=== PATIENT | male | born 1965 | race Caucasian/White ===

== ENCOUNTER 2016-11-24 08:39 | Emergency (ER) ==
[2016-11-24 08:50] VITALS: BP 158/103
--- NOTE | 2016-11-24 09:19 | PROVIDER DOCUMENTATION ---
HPI-Musculoskeletal Pain/Inj - GENERAL Chief Complaint: Hip Pain Stated Complaint: fall/hip pain Time Seen by Provider: 11/24/16 09:12 Source: patient - HX OF PRESENT ILLNESS-MUSKULOSKELTAL Nature of Presenting Problem: 51 y/o Wm c/o left hip pain x 6-7 months, with a fall last night that increased the pain. He is on chronic pain management at a [facility]. States he is able to ambulate but the pain is worse now. Denies change of pain from prior, except for increase in activity. Denies hitting head or loc. Currently takes oxycodone, hydrocodone and a muscle relaxers for the pain Quality of Pain: reports: aching Severity in ED: moderate Onset/Duration: other (6-7 months) Timing: still present, constant Review of Systems - Adult - REVIEW OF SYSTEMS - ADULT Constitutional: reports: no symptoms reported. denies: chills, fever, fatique Eyes: reports: no symptoms reported. denies: blurred vision, double vision, eye pain Ears, Nose, Mouth & Throat: reports: no symptoms reported. denies: ear pain, nose pain, throat pain Cardiovascular: reports: no symptoms reported. denies: chest pain, palpitations Respiratory: reports: no symptoms reported. denies: cough, shortness of breath , wheezing Gastrointestinal: reports: no symptoms reported. denies: abdominal pain, diarrhea, nausea, vomiting Genitourinary: reports: no symptoms reported. denies: dysuria, discharge, frequency, incontinence Musculoskeletal: reports: see HPI, bone pain, frequent leg cramps, joint pain, muscle aches. denies: back pain Integumentary: reports: no symptoms reported. denies: rash Neurological: reports: no symptoms reported. denies: headache/migraines Psychiatric: reports: no symptoms reported Endocrine: reports: no symptoms reported Hematologic/Lymphatic: reports: no symptoms reported Allergic/Immunologic: reports: no symptoms reported All Other Systems: Reviewed and Negative Past History - Adult - PAST MEDICAL HISTORY-ADULT Review of Records: reports: Old Records Reviewed, Nursing Assessment Review, Medications Reviewed, Social history reviewed & non-contributory. Major Childhood Illnesses: reports: denies history Cardiovascular: reports: denies history Respiratory: reports: COPD, other Gastrointestinal: reports: denies history Genitourinary: reports: denies history Musculoskeletal: reports: cancer (spinal cancer), chronic pain Neurological: reports: denies history Endocrine/Immune: reports: denies history Other Conditions: reports: denies history - PRIOR SURGERIES/PROCEDURES Surgical/Procedure History: reports: other (Total hip replacement right) - IMMUNIZATION STATUS Childhood Immunizations: UTD Flu Vaccine: UTD - FAMILY HISTORY Family History: reviewed, not pertinent - SOCIAL HISTORY Smoking: greater than 1 pack/day Provider spent 3-5 mins advising pt. on dangers of tobacco.: Discussed manners to quit use, and f/u contacts for add'l counseling. Substance Use: none/never Alcohol Use Frequency: never Living Situation: family Physical Exam-Injury Related - Physical Exam-Injury Related General Appearance: appears well, alert, mild distress Eyes: PERRL/EOMI, pink conjunctivae Head, Ears, Nose, Mouth & Throat: normocephalic/atraumatic, moist mucous membranes, normal ENT inspection Neck: non-tender, full range of motion, supple, normal inspection. negative: C- spine tenderness Respiratory: chest non-tender, lungs clear, normal breath sounds, no pleuratic chest pain, no respiratory distress, no accessory muscle use. negative: respiratory distress, decreased breath sounds, accessory muscle use, crackles, rales, rhonchi, stridor, wheezing Cardiovascular: normal peripheral pulses, regular rate, rhythm, no edema, no gallop, no JVD, no murmur Peripheral Pulses: dorsalis-pedis (R): 2+, dorsalis-pedis (L): 2+ Lymphatic: no adenopathy Extremity: normal range of motion, normal inspection, no pedal edema, no calf tenderness, normal capillary refill, pelvis stable, other (left hip: patient is ambulatory, favoring the left hip. 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 II-XII nml as tested, no motor/sensory deficits Psych/Mental Status: AL, normal mood/affect, normal thought content, normal thought process, oriented x 3 - Glascow Coma Score Best Eye Response (Luis): (4) open spontaneously Best Verbal Response (Luis): (5) oriented Best Motor Response (Luis): (6) obeys commands Progress - PLAN OF CARE/RESULTS Progress/Plan/Lab Results: Vital Signs Temp Pulse Resp BP Pulse Ox 11/24/16 08:46 98.1 F 95 H 18 158/103 98 amoxicillin [Amoxicillin] Allergy (Severe, Verified 11/24/16 09:26) ANAPHYLAXIS aspirin Allergy (Mild, Verified 11/24/16 09:26) ANAPHYLAXIS diphenhydramine HCl * [From Benadryl] Allergy (Mild, Verified 11/24/16 09:26) ITCHING Penicillins Allergy (Mild, Verified 11/24/16 09:26) RASH Diazepam [Valium] 10 mg PO BID 01/24/13 Gabapentin [Neurontin] 400 mg PO TID 06/04/14 Albuterol 2.5MG/Ipratrop 0.5MG [Duoneb] 3 ml INH Q4-6H PRN PRN #25 neb 07/09/14 Atorvastatin Calcium [Lipitor] 20 mg PO DAILY 07/09/14 Lisinopril 10 mg PO DAILY 07/09/14 Prednisone 10 mg PO Q8HR #30 tablet 07/09/14 Aripiprazole [Abilify] 5 mg PO BID 11/24/16 Ferrous Sulfate [Iron] 325 mg PO DAILY 11/24/16 Oxycodone HCl/Acetaminophen [Percocet 7.5-325 mg Tablet] 1 tab PO 4XDAY Orders Category Date Time Status XRAY PELVIS W/HIP 2-3VW LT [RAD] Stat Exams 11/24/16 08:50 Taken Hydromorphone [Dilaudid] Med 11/24/16 09:42 Discontinued 0.5 mg IM NOW ONE Discussed with patient and family member the importance of seeing the orthopedic within the next week. Patient and family member agreed they would call the orthopedic today for an appointment - XRAY 1 XRAY: Left XRAY Study: Pelvis, Hip Impression: Abnormal (advanced AVN of the left femoral head) Departure - Departure Time of Disposition Order: 09:42 DIAGNOSIS: Chronic left hip pain Avascular necrosis of femoral head Qualifiers: Laterality: left Qualified Code(s): M87.052 - Idiopathic aseptic necrosis of left femur Disposition: HOME 01 Certified Medical Emergency: Emergent Condition: Stable Additional Instructions: Follow up with Dr. Martinez, orthopedics ED Follow Up Instructions: You have been treated by a care provider in the Emergency Department. These instructions are being provided to you so you can have an understanding of how to care for yourself upon discharge. Upon discharge from the Emergency Department, you are responsible for making arrangements for follow-up care by a physician of your choice. Take all prescribed medications as directed. Return to the Emergency Department immediately for any new or worsening symptoms. You may call the Physician Referral phone number at [phone] to obtain a list of Physicians who are taking new patients. Referrals: Davidson Cobb [Primary Care Provider] - Michael Martinez MD [STAFF PHYSICIAN] - Attestation - Physician/ Mid-level Attestation Patient care was provided by Mid-level provider (ELECTRONIC COILS SUPERVISOR/PA):: Yes Mid-level provider:: Bharti Mckenzie Mid-level documentation review:: The Mid-level provider documentation, treatment plan and medical decision making was reviewed by the physician who agrees with all treatment and medical decision making by the MLP.
[2016-11-24] MEDS ORDERED: DILAUDID IM ONE (09:42)
--- NOTE | 2016-11-24 10:09 | Diag Imaging Result Document ---
PROCEDURE NAME: XRAY PELVIS W/HIP 2-3VW LT - 11/24/2016 X-RAY PELVIS AND TWO VIEWS OF THE LEFT HIP: COMPARISON: 06/04/2014. FINDINGS: There is a stable right hip prosthesis. There is no fracture or dislocation. There is progressive geographic sclerosis in the epiphysis of the left femoral head. The joint space is still preserved at this point. IMPRESSION: Severely advanced avascular necrosis of the left femoral head.
== END 2016-11-24 10:24 | disposition home or self-care (01) ==
LOC: ED 08:39
DX: M87.052 Idiopathic aseptic necrosis of left femur (principal); M25.552 Pain in left hip; G89.29 Other chronic pain; M89.8X8 Other specified disorders of bone, other site; M79.1 Myalgia; J44.9 Chronic obstructive pulmonary disease, unspecified; Z85.830 Personal history of malignant neoplasm of bone; Z96.641 Presence of right artificial hip joint; Z79.899 Other long term (current) drug therapy; F17.210 Nicotine dependence, cigarettes, uncomplicated; Z71.6 Tobacco abuse counseling; Z79.52 Long term (current) use of systemic steroids
CPT/HCPCS: 96372; J1170

== ENCOUNTER 2019-12-30 20:23 | Inpatient (IN) ==
[2019-12-30] MEDS ORDERED: QUELICIN ONE (20:36)
[2019-12-30] MEDS ORDERED: AMIDATE ONE (20:36)
[2019-12-30] MEDS ORDERED: DIPRIVAN 1% 1,000 MG/100 ML BOTTLE ONE (20:49)
[2019-12-30] MEDS ORDERED: DIPRIVAN 1% ONE (20:50)
[2019-12-30] MEDS ORDERED: AMIDATE IV ONE (21:00)
[2019-12-30] MEDS ORDERED: QUELICIN IV ONE (21:00)
[2019-12-30] MEDS ORDERED: DIPRIVAN 1% IV ONE (21:01)
--- NOTE | 2019-12-30 21:04 | Diag Imaging Result Doc PS360 ---
EXAM: CHEST-PORTABLE 12/30/2019 HISTORY: tube placement TECHNIQUE: AP portable at 2052 COMMENT: There is an endotracheal tube with its tip at the thoracic inlet and an NG tube with its tip below the diaphragm in the body of the stomach. The heart size and pulmonary vascularity are within normal limits. There is no evidence of acute pulmonary disease. IMPRESSION: No evidence of acute disease. Electronically signed by Loy Vizcaino 12/30/2019 9:01 PM
[2019-12-30] MEDS: DIPRIVAN 1% 1,000 MG/100 ML BOTTLE IV SCH (21:05)
[2019-12-30 21:23] LABS: URINE SOURCE CATH
[2019-12-30 21:31] LABS: BASO# 0.04 X1000 (0.0-0.2); BASO% 0.3 % (0.0-0.8); EOS# 0.16 X1000 (0.0-0.7); EOS% 1.2 % (0.0-10.0); HEMATOCRIT 45.6 % (42.0-52.0); HEMOGLOBIN 14.8 g/dL (14.0-18.0); IMM GRAN# 0.05 X1000 (0.0-0.04); IMM GRAN% 0.4 % (0.0-0.5); LYMPH# 1.86 X1000 (1.2-3.4); LYMPH% 13.7 % (20.5-51.1); MCH 30.4 PG (27-31); MCHC 32.5 g/dL (33-37); MCV 93.6 FL (81-99); MONO# 0.45 X1000 (0.11-0.59); MONO% 3.3 % (1.7-9.3); MPV 10.4 FL (7.4-10.4); NEUT# 10.98 X1000 (1.4-6.5); NEUT% 81.1 % (42.2-75.2); PLT 268 X1000 (130-400); RBC 4.87 XMIL (4.7-6.1); RDW 12.9 % (11.5-14.5); WBC 13.54 X1000 (4.8-10.8)
[2019-12-30 21:32] LABS: BILIRUBIN URINE NEGATIVE (NEGATIVE); BLOOD URINE NEGATIVE (NEGATIVE); COLOR YELLOW; GLUCOSE URINE NEGATIVE (NEGATIVE); KETONE URINE 20 mg/dL (NEGATIVE); LEUKOCYTES URINE NEGATIVE (NEGATIVE); NITRITE URINE NEGATIVE (NEGATIVE); PROTEIN URINE TRACE mg/dL (NEGATIVE); SP GRAVITY URINE 1.031; TURBIDITY URINE CLEAR (CLEAR); UROBILINOGEN URINE 3 mg/dL (NORMAL)
[2019-12-30 21:33] LABS: UR EPITHELIAL CELLS <10 /HPF (<10); URINE BACTERIA NEGATIVE /HPF; URINE RBC <10 /HPF (<10); URINE WBC <10 /HPF (<10)
--- NOTE | 2019-12-30 21:41 | Diag Imaging Result Doc PS360 ---
EXAM: CT HEAD/C-SPINE W/O CONTRAST 12/30/2019 HISTORY: UNRESPONSIVE TECHNIQUE: This exam was performed using automated exposure control, adjustment of mA or kV according to patient size, and/or use of iterative reconstruction technique. COMMENT: There is no evidence of mass effect, bleed, or abnormal extra-axial fluid collection. There is marked mucosal thickening in both maxillary sinuses and in some of the ethmoid air cells. The calvarium is intact. There are no previous studies. Cervical spine: There is disc space narrowing and posterior osteophyte formation at C4-5 and C5-6. There is an endotracheal tube and an NG tube. There is no evidence of prevertebral soft tissue swelling. The nasopharynx is opacified. The visualized portions of the chest are unremarkable. No evidence of fracture or subluxation is present. IMPRESSION: No evidence of acute intracranial or cervical spine disease. Sinusitis. Degenerative disc disease. Electronically signed by Loy Vizcaino 12/30/2019 9:39 PM
[2019-12-30 21:48] LABS: AGAP 13; ALB/GLOB RATIO 1.1; ALBUMIN 3.8 g/dL (3.5-5.0); ALKALINE PHOSPHATASE 86 U/L (32-122); BUN 11 mg/dL (8-22); CALCIUM 8.2 mg/dL (8.8-10.2); CHLORIDE 102 mmol/L (98-107); CK TOTAL 144 U/L (24-204); COSMO 278; CREATININE 0.8 mg/dL (0.7-1.2); ESTIMATED GFR > 60; GLUCOSE 120 mg/dL (70-104); GOT 22 U/L (10-34); GPT 13 U/L (10-44); POTASSIUM 4.3 mmol/L (3.5-5.1); SODIUM 139 mmol/L (136-145); TCO2 24 mmol/L (25-35); TOTAL BILIRUBIN 0.24 mg/dL (0.20-1.00); TOTAL PROTEIN 7.3 g/dL (6.3-8.3)
[2019-12-30 21:50] LABS: UR AMPHETAMINES QUAL PRESUMPTIVE POSITIVE (NONE DETECT); UR BARBITUATES QUAL NONE DETECTED (NONE DETECT); UR BENZODIAZEPIN QUAL NONE DETECTED (NONE DETECT); UR CANNABINOIDS QUAL PRESUMPTIVE POSITIVE (NONE DETECT); UR COCAINE QUAL NONE DETECTED (NONE DETECT); UR METHADONE QUAL NONE DETECTED (NONE DETECT); UR OPIATES QUAL NONE DETECTED (NONE DETECT); UR OXYCODONE QUAL NONE DETECTED (NONE DETECT); UR PCP QUAL NONE DETECTED (NONE DETECT)
--- NOTE | 2019-12-30 22:54 | PROVIDER DOCUMENTATION ---
This chart was entered by Karen Khan Scribe, acting as scribe for Celeste Connolly MD. HPI-General Adult - General Chief Complaint: Unresponsive Stated Complaint: unresponsive Time Seen by Provider: 12/30/19 20:23 Source: EMS Unable to obtain history due to:: altered Allergies/Adverse Reactions: Patient Allergies Allergy/AdvReac Type Severity Reaction Status Date / Time amoxicillin [Amoxicillin] Allergy Severe ANAPHYLAXIS Verified 12/30/19 22:00 aspirin Allergy Mild ANAPHYLAXIS Verified 12/30/19 22:00 diphenhydramine HCl * Allergy Mild ITCHING Verified 12/30/19 22:00 [From Benadryl] Penicillins Allergy Mild RASH Verified 12/30/19 22:00 Home Medications: Home Medication List Medication Instructions Recorded Confirmed Last Taken Type Unobtainable [Home Meds 12/30/19 12/30/19 Unknown History Unobtainable] - History of Present Illness -Gen Adult Nature of Presenting Problems: pt is a 54 yr old male presenting unconscious/unresponsive via EMS from home. per EMS pt was sitting on couch talking to when he passed out and fell to the right landing on the couch. pt had decreased respirations and pulse upon EMS arrival, ventilations assisted with BVM and Romeo airway was placed. reports pt was normal throughout the day, went to breakfast then returned home with , she reports they worked outside in the yard after returning home. upon going inside after yard work reports he began pouring sweat, began shaking and became unresponsive. reports he then stopped breathing and she began bystander CPR, pt began breathing on his own again but stopped and she resumed until E<S arrived. reports no hx of seizure, no drug abuse, does have hx of uncontrolled/noncompliant HTN and COPD and is to be on home o2 but does not use it. Review of Systems - Adult - REVIEW OF SYSTEMS - ADULT ROS:: unobtainable per condition Constitutional: reports: no symptoms reported Eyes: reports: no symptoms reported Ears, Nose, Mouth & Throat: reports: no symptoms reported Cardiovascular: reports: syncope Respiratory: reports: no symptoms reported Gastrointestinal: reports: no symptoms reported Genitourinary: reports: no symptoms reported Musculoskeletal: reports: no symptoms reported Integumentary: reports: no symptoms reported Neurological: reports: syncope Psychiatric: reports: no symptoms reported Endocrine: reports: no symptoms reported Hematologic/Lymphatic: reports: no symptoms reported Allergic/Immunologic: reports: no symptoms reported All Other Systems: Reviewed and Negative Past History - Adult - PAST MEDICAL HISTORY-ADULT Review of Records: reports: Old Records Reviewed, Nursing Assessment Review, Medications Reviewed, Social history reviewed & non-contributory. Major Childhood Illnesses: reports: denies history Cardiovascular: reports: denies history Respiratory: reports: COPD Gastrointestinal: reports: denies history Obstetrical/Gynecological: reports: denies history Genitourinary: reports: denies history Musculoskeletal: reports: cancer Neurological: reports: denies history Endocrine/Immune: reports: denies history Other Conditions: reports: denies history - IMMUNIZATION STATUS Childhood Immunizations: See Nurse Assessment Flu Vaccine: See Nurse Assessment - FAMILY HISTORY Family History: reviewed, not pertinent - SOCIAL HISTORY Smoking: cigarettes Substance Use: alcohol Alcohol Use Frequency: every day Living Situation: family Physical Exam-General - PHYSICAL EXAM-ADULT Initial Vital Signs Reviewed: Yes - CONSTITUTIONAL General Appearance: obtunded - EYES Eyes: PERRL/EOMI - HEAD, EARS, NOSE, MOUTH & THROAT HENMT: normocephalic/atraumatic, moist mucous membranes, other (blood noted to cornor of right mouth) - RESPIRATORY Respiratory: lungs clear, normal breath sounds, other (ventilations performed via BVM) - CARDIOVASCULAR Cardiovascular: normal peripheral pulses, bradycardia - GASTROINTESTINAL (ABDOMEN) Abdominal Exam: soft - LYMPHATIC Lymphatic: no adenopathy - MUSCULOSKELETAL Back Exam: normal inspection - SKIN Integumentary: normal color, normal turgor, warm/dry Progress - PLAN OF CARE/RESULTS Progress/Plan/Lab Results: Vital Signs - 8 hr 12/30/19 20:34 Temperature 93.3 F L Pulse Rate 55 L Respiratory Rate 8 L Blood Pressure 137/109 O2 Sat by Pulse Oximetry 100 Laboratory Results - last 24 hr 12/30/19 20:39 POC Glucose 97 Orders Category Date Time Status Etomidate [Amidate] Med 12/30/19 20:36 Discontinued 40 mg .ROUTE .STK-MED ONE Succinylcholine [Quelicin] Med 12/30/19 20:36 Discontinued 200 mg .ROUTE .STK-MED ONE Result Diagrams: 12/30/19 20:45 12/30/19 20:45 - EKG 1 Time of EKG reading by physician:: 20:27 EKG Read and Signed by:: Celeste Connolly EKG Interpretation (*Must complete 3 of following elements*): Abnormal Rate: 74 Rhythm: NSR with SA NC Interval: prolonged ST Wave: elevated (st elevation, consider early repolarization, pericarditis or injury), depressed (junctional ST depression-probably normal) - XRAY 1 XRAY Study: Chest Impression: Normal ( EXAM: CHEST-PORTABLE 12/30/2019 HISTORY: tube placement TECHNIQUE: AP portable at 2052 COMMENT: There is an endotracheal tube with its tip at the thoracic inlet and an NG tube with its tip below the diaphragm in the body of the stomach. The heart size and pulmonary vascularity are within normal limits. There is no evidence of acute pulmonary disease. IMPRESSION: No evidence of acute disease. Electronically signed by Loy Vizcaino 12/30/2019 9:01 PM 12/30/192100 Interpreting Physician: Loy Vizcaino MD Dictated Date/Time: 12/30/192099 cc: Celeste Connolly MD;) - CT/MRI 1 CT Study: Cervical Spine, Head Impression: Normal (Signed EXAM: CT HEAD/C-SPINE W/O CONTRAST 12/30/2019 HISTORY: UNRESPONSIVE TECHNIQUE: This exam was performed using automated exposure control, adjustment of mA or kV according to patient size, and/or use of iterative reconstruction technique. COMMENT: There is no evidence of mass effect, bleed, or abnormal extra-axial fluid collection. There is marked mucosal thickening in both maxillary sinuses and in some of the ethmoid air cells. The calvarium is intact. There are no previous studies. Cervical spine: There is disc space narrowing and posterior osteophyte formation at C4-5 and C5-6. There is an endotracheal tube and an NG tube. There is no evidence of prevertebral soft tissue swelling. The nasopharynx is opacified. The visualized portions of the chest are unremarkable. No evidence of fracture or subluxation is present. IMPRESSION: No evidence of acute intracranial or cervical spine disease. Sinusitis. Degenerative disc disease. Electronically signed by Loy Vizcaino 12/30/2019 9:39 PM 12/30/192138 Interpreting Physician: Loy Vizcaino MD Dictated Date/Time: 12/30/192134 cc: Celeste Connolly MD;) - CONSULTS/PCP/HOSPITALIST Notification #1 *Consult/PCP/Hospitalist*: Dr Reeves Time Discussed: 22:45 Reason/Comments: discussed plan of care for pt admit Consult Disposition: Admit (will see in ER) Procedures - INTUBATION Time of Intubation: 20:30 Intubation Method: orotracheal Equipment: ETT Tube Size (cm): 7.5 Pretreated with 100% Oxygen?: Yes Breath Sounds after Intubation: equal ETT Primary Tube Confirmation: Direct Visualization, Chest Rise and Fall, Tube placement verified on XRAY Intubation Complications: no complications Vent Settings: See Respiratory Therapy Notes Departure - Departure Date of Disposition Decision: 12/30/19 Time of Disposition Decision: 22:54 DIAGNOSIS: Seizure, Respiratory failure Disposition: ADMITTED INPATIENT 09 Certified Medical Emergency: Emergent Condition: Critical - Critical Care Note This patient required my direct & personal management of CC.: Yes Total Time (mins): 30 Critical Care Statement: This patient required my direct personal management to treat or rule out processes, the absence of which, could potentiallly result in sudden, clinically significant life or limb threatening deterioration. Attestation - Physician/ KEYANA Attestation Patient care was provided by Advanced Practice Provider:: No The physician spent face to face time with patient:: Yes Advanced Practice Provider documentation review:: Supervising physician onsite and consulted in the evaluation and care of this patient. The physician did have a face to face encounter with the patient. This chart was documented by the indicated scribe, (Karen Khan Scribe) and accurately reflects the services I performed and decisions made by me, Celeste Connolly MD, as attested by the provider's signature.
[2019-12-30] MEDS ORDERED: M.V.I.-12 10 ML, FOLIC ACID 1 MG, MAGNESIUM SULFATE 1 GM, THIAMINE 100 MG in NS 1,000 ML IV ONE (23:29)
[2019-12-30] MEDS ORDERED: MORPHINE IV ONE (23:29)
[2019-12-30 23:51] LABS: ALLEN TEST YES; BE 1.4 mmoll (-3.0-3.0); BLOOD TYPE ARTERIAL; METHB 1.2 % (0.0-1.5); O2(CT) 21.3 mL/dL (15.0-23.0); O2HB 96.9 % (95.0-99.0); PCO2(98.6) 43 mmHg (35-45); PO2(98.6) 559 mmHg (60-100); SAMPLE BLOOD; SAO2 99.4 % (95.0-100.0); SRATE 15 BPM; THB 14.5 g/dL (11.5-17.4); TVOL 500 mL
[2019-12-30 23:52] LABS: MODALITY VENTILATOR
--- NOTE | 2019-12-31 01:20 | HISTORY AND PHYSICAL ---
PRIMARY CARE PROVIDER: None. REASON FOR ADMISSION: New onset seizure. HISTORY OF PRESENT ILLNESS: Mr. Joseph Esquivel is a 52-year-old man with past medical history of hypertension, COPD on home O2. Apparently, he is not compliant per his who is not at bedside, but relayed this information to the nurse and EMS. Today, he and his did some I believe yard work and the patient did not use any home O2 while doing this. After several hours of working out in the yard, they came into the house. The patient sat down and according to the , the patient became profoundly diaphoretic, stuporous, and went into a tonic-clonic type seizure. The estimates about 30 seconds this went on and he stopped. She tried to arouse him without any success and called EMS who subsequently brought him in. Since he has been here, he has underwent endotracheal intubation because he started posturing more of a decerebrate type posture. Currently, he is on the ventilator, unable to give any information. is not at bedside. The patient as I stated earlier unable to give me any information. He is currently sedated and hardly moving at all in bed. REVIEW OF SYSTEMS: Could not be obtained for obvious reasons. SURGICAL HISTORY: Could not be obtained. FAMILY HISTORY: Could not be obtained. SOCIAL HISTORY: He is . Drinks about 12 beers a day. Only drank 4 today. His last drink was at 4 p.m., according to the . Sometimes in addition to 12 beers drinks some unquantified amount of whiskey. Drug use could not be obtained, but he does smoke a pack a day. LABORATORY WORK: White count is 13,000, hemoglobin and hematocrit 14 and 45, platelets 268,000, 81% neutrophils. BUN is 11, creatinine 0.8, glucose 120. CK is normal. UDS positive for amphetamines and cannabinoids. Urinalysis, trace protein, trace ketones. CT of the head and C- spine, no evidence of intracranial or cervical abnormalities. Chest film, no evidence of acute disease. EKG not done yet. ALLERGIES: Patient allergic to penicillins, Benadryl and aspirin. PHYSICAL EXAMINATION: GENERAL: He is a middle-aged white male unresponsive on the ventilator. VITAL SIGNS: Blood pressure when I saw him was 180/111, heart rate is 100, respiratory rate is 22, temperature is 93.3 degrees. It is currently up to 95 after use of the Arnoldo Hugger. HEENT: His head is normocephalic, atraumatic. Eyes are slightly miotic but slowly reactive to light. No nystagmus or abnormal eye movement noted. Negative dolls eye movement. No facial asymmetry appreciated. ET tube is in place. No cyanosis noted. NECK: Supple. No JVD appreciated. CHEST: Decreased air entry in the bases, but no wheezes. CARDIOVASCULAR: First and second heart sounds heard. No gallops, rubs. Rhythm is regular. ABDOMEN: Full, soft, nontender. No organomegaly. Bowel sounds are slightly hypoactive. RECTAL: Exam deferred at this time. EXTREMITIES: There is good distal pulse volumes, regular, symmetrical. No edema, clubbing or peripheral cyanosis. NEUROLOGICAL: The patient does not withdraw when pain applied to upper extremities. When deep sternal rub is applied, he only flexes his knees and hip joints. SKIN: Intact. No breakdown, lesion, erythema. SKYLAR: is grossly normal. ASSESSMENT: 1. New onset seizure upper, questionable alcohol withdrawal. Cannot rule out intracranial or alternative intracranial pathology. 2. Encephalopathy probably related to underlying alcoholic disease or postictal state. 3. Uncontrolled hypertension. 4. Chronic obstructive pulmonary disease, supposed to be on home oxygen. 5. Alcohol abuse. 6. Probable methamphetamine and marijuana abuse. PLAN: Patient will be sent to the ICU with ventilator for O2 support. In light of the fact this is his first seizure, we still have to rule out structural etiology for this seizure as this will effect long-term treatment. Even though he has a strong history of alcoholism, it will be prudent to rule out structural disease. MRI will be ordered logistically and if logistically not possible then maybe a CT with contrast can be used alternatively. Consult Neurology to see patient. Defer to Neurology for possible EEG although the yield at this stage may probably be low, it is possible. ABG still pending. I ordered an ABG and it is still possible that the patient's seizure could have been due to hypoxemia and hypercapnia as opposed to alcoholism. Manage blood pressure with hydralazine. DVT prophylaxis and peptic ulcer disease prophylaxis will be instituted. Thiamine will be given daily to rule out the possibility of Wernicke's encephalopathy. cc: Kt Reeves MD [facility]
[2019-12-31] MEDS ORDERED: APRESOLINE IV PRN (02:14)
[2019-12-31] MEDS ORDERED: TYLENOL PO PRN (02:14)
[2019-12-31] MEDS ORDERED: PEPCID IV SCH (02:14)
[2019-12-31] MEDS ORDERED: SODIUM CHLORIDE 0.9% INJ SCH (02:14)
[2019-12-31] MEDS ORDERED: ZOFRAN IV PRN (02:14)
[2019-12-31] MEDS: LOVENOX SUBQ SCH (02:32)
[2019-12-31] MEDS: DIPRIVAN 1% 1,000 MG/100 ML BOTTLE IV SCH ×7 (02:34→21:49)
[2019-12-31] MEDS: POTASSIUM CHLORIDE 10 MEQ in NS 1,000 ML IV SCH ×2 (02:37→08:22)
[2019-12-31] MEDS: MORPHINE IV PRN ×4 (04:14→23:12)
[2019-12-31 05:31] LABS: BASO# 0.03 X1000 (0.0-0.2); BASO% 0.3 % (0.0-0.8); EOS# 0.09 X1000 (0.0-0.7); EOS% 0.9 % (0.0-10.0); HEMATOCRIT 38.4 % (42.0-52.0); HEMOGLOBIN 12.4 g/dL (14.0-18.0); LYMPH# 1.94 X1000 (1.2-3.4); LYMPH% 19.7 % (20.5-51.1); MCH 30.5 PG (27-31); MCHC 32.3 g/dL (33-37); MCV 94.6 FL (81-99); MONO# 0.56 X1000 (0.11-0.59); MONO% 5.7 % (1.7-9.3); MPV 9.9 FL (7.4-10.4); NEUT# 7.24 X1000 (1.4-6.5); NEUT% 73.4 % (42.2-75.2); PLT 225 X1000 (130-400); RBC 4.06 XMIL (4.7-6.1); RDW 12.8 % (11.5-14.5); WBC 9.86 X1000 (4.8-10.8)
[2019-12-31 05:41] LABS: ALLEN TEST YES; BE 0.1 mmoll (-3.0-3.0); BLOOD TYPE ARTERIAL; METHB 0.7 % (0.0-1.5); O2(CT) 15.5 mL/dL (15.0-23.0); O2HB 97.4 % (95.0-99.0); PCO2(98.6) 43 mmHg (35-45); PO2(98.6) 145 mmHg (60-100); SAMPLE BLOOD; SAO2 99.3 % (95.0-100.0); SRATE 15 BPM; THB 11.1 g/dL (11.5-17.4); TVOL 500 mL; pH(98.6) 7.38 (7.35-7.45)
[2019-12-31 05:43] LABS: MODALITY VENTILATOR
[2019-12-31 05:49] LABS: AGAP 12; ALB/GLOB RATIO 1.6; ALBUMIN 3.3 g/dL (3.5-5.0); ALKALINE PHOSPHATASE 73 U/L (32-122); BUN 10 mg/dL (8-22); CALCIUM 7.9 mg/dL (8.8-10.2); CHLORIDE 105 mmol/L (98-107); COSMO 280; CREATININE 0.6 mg/dL (0.7-1.2); ESTIMATED GFR > 60; GLUCOSE 97 mg/dL (70-104); GOT 17 U/L (10-34); GPT 10 U/L (10-44); MAGNESIUM 1.8 mg/dL (1.5-2.7); SODIUM 141 mmol/L (136-145); TCO2 24 mmol/L (25-35); TOTAL BILIRUBIN 0.27 mg/dL (0.20-1.00); TOTAL PROTEIN 5.4 g/dL (6.3-8.3)
[2019-12-31] MEDS: DUONEB (A & A) INH SCH ×4 (06:18→22:55)
--- NOTE | 2019-12-31 07:45 | Diag Imaging Result Doc PS360 ---
CHEST-1 VIEW - 12/31/2019 INDICATION: vent COMPARISON: 12/30/2019 FINDINGS: Support tubes are stable and in good position. The lungs are clear. Heart size is normal. No pneumothorax or pleural effusion. IMPRESSION: Negative exam. Electronically signed by Alejandro Leggett 12/31/2019 7:42 AM
[2019-12-31] MEDS ORDERED: THIAMINE 200 MG in NS 50 ML IV SCH (09:00)
[2019-12-31 10:12] LABS: HEMOGLOBIN A1C 5.3 % (4.8-6.0)
--- NOTE | 2019-12-31 11:20 | EKG Report ---
Test Performed on : 12/31/2019 10:50:04 AM Test Reason : respiratory arrest Blood Pressure : / mmHG Vent. Rate : 072 BPM Atrial Rate : 072 BPM P-R Int : 148 ms QRS Dur : 092 ms QT Int : 406 ms P-R-T Axes : 082 078 078 degrees QTc Int : 444 ms Normal sinus rhythm. Normal ECG When compared with ECG of 21-APR-2018 20:19, Vent. rate has decreased BY 45 BPM Confirmed by Alex Maldonado MD ([id number]) on 12/31/2019 4:15:54 PM
--- NOTE | 2019-12-31 12:11 | PULMONOLOGY CONSULTATION ---
DATE: 12/31/2019 REQUESTING CLINICIAN: Dr. Bolden. REASON FOR CONSULTATION: Respiratory failure. HISTORY OF PRESENT ILLNESS: Mr. Esquivel is a 54-year-old male with history of COPD, ongoing tobacco use, history of alcohol, cocaine, and amphetamine use, who was working outside in his yard. When he came in, he became diaphoretic and subsequently unresponsive. The patient's reports he received cardioversion when the EMS arrived, but this was not mentioned in the ER notes. Bystander CPR is also noted in the notes, but the patient's nor none of the family members initiated CPR. CT scan of the head was performed which revealed sinusitis but no other evidence of acute disease. Chest x-ray was performed which revealed no acute disease. He is on sedation with some movement with some spontaneous breaths, respiratory effort. PAST MEDICAL HISTORY: 1. No home medications listed. 2. Multiple allergies listed, including amoxicillin, aspirin, Benadryl, and penicillins. PREVIOUS MEDICAL CONDITIONS: 1. COPD. 2. Substance abuse as outlined above with prior detoxification. 3. Hypertension. 4. Dyslipidemia. 5. Reflux. 6. History of skin cancer. 7. Prior hip surgery. SOCIAL HISTORY: Ongoing polysubstance abuse as outlined in the HPI. The patient's reports he has been cutting back on alcohol, but has been increasing his crack cocaine use. FAMILY HISTORY: Noncontributory to current presentation. REVIEW OF SYSTEMS: Cannot be obtained. PHYSICAL EXAMINATION: General: Reveals a thin, chronically ill-appearing male, who appears older than his stated age of 54. He is disheveled. Vital Signs: BP 137/89 heart rate 79, respiratory rate 17, oxygen saturation 99%. HEENT: Pupils are small, making it difficult to see if they are reactive. Oropharynx appears dry. Neck: Supple. Chest: Reveals good air entry bilaterally without evidence of prolonged expiratory phase. Cardiac Exam: Normal S1, normal S2. Abdomen: Soft. Extremities: Without edema. His hands are dirt stained from working out in the ER. LABORATORIES: Arterial blood gas this morning: A pH 7.38, pCO2 of 43, PO2 of 145. Sodium 141, potassium 4.0, chloride 105, bicarbonate 24. BUN 10, creatinine 0.6. White blood count 9.86, hemoglobin 12.4, platelet count 225,000. IMPRESSION: A 54-year-old with: 1. Seizure. 2. Encephalopathy. 3. Polysubstance abuse. 4. Nicotine addiction with ongoing tobacco use. RECOMMENDATIONS: 1. Continue mechanical ventilatory support through the day. We will re-evaluate for weaning tomorrow with a sedation vacation. If his mental status does not appear to be improving, would recommend follow up CT scan or magnetic resonance imaging. 2. Continue multivitamin daily with history of substance abuse. 3. Counseling for tobacco and polysubstance abuse. At age 54, he will not likely survive long- term if he continues to use these medications/illicit drugs. TIME SPENT IN CRITICAL CARE MANAGEMENT: 1 hour. cc: Sanchez Hamilton MD
--- NOTE | 2019-12-31 12:41 | NEUROLOGY CONSULTATION ---
DATE: 12/31/2019 REASON FOR CONSULT: New onset seizure. HISTORY OF PRESENT ILLNESS: This is a 54-year-old, male with a history of drug abuse including methamphetamine, alcoholism, and hypertension, as well as COPD. He is noncompliant. He presented to the emergency room last night due to unresponsiveness. History is from chart review as well as from the patient's daughter and son-in-law who are at the bedside. Apparently, he was in his normal state of health. Him and his went out. They came home and did work in the yard. He did not use his oxygen, which is typical for him. They came in, sat down on the sofa. They were talking and all of a sudden, he began pouring sweat, turned pale, and became unresponsive. There may have been some shaking. He passed out and fell over to the right, landing on the sofa. There were reduced respirations and pulse when EMS arrived. Toxicology was positive for amphetamines and cannabinoids. Blood alcohol level was 0. The patient was intubated, I believe on arrival, with the use of etomidate and succinylcholine. Apparently, reported no history of seizure. Family reports no history of major neurologic event. The daughter does say the patient is a drug addict. He uses methamphetamine. His and the patient himself also have been known to abuse prescription narcotic medications. They are not aware of other drug use but state that their father lives in a "meth house". She does not visit often because she cannot bring her children around the patient and his . She also reports that he is an alcoholic as long as she has known him. The methamphetamines started somewhere around a year ago or more. PAST MEDICAL HISTORY: COPD. He is noncompliant with home oxygen. Drug abuse, alcohol abuse. She mentioned skin cancer. She also mentioned the possibility of another type of cancer diagnosis, possibly colon cancer, but says that whatever the patient's says has to be taken with a grain of salt. FAMILY HISTORY: No stroke or seizure. SOCIAL HISTORY: He is . He drinks daily, several beers, at times whiskey. He uses methamphetamine and per the daughter, lives in a "meth house". He has abused prescription drugs as well in the past. He smokes tobacco. He is noncompliant. ALLERGIES: Multiple. Listed and reviewed in the chart. REVIEW OF SYSTEMS: Unobtainable due to patient being intubated. PHYSICAL EXAMINATION: Vital Signs: Afebrile, blood pressure 136/89, early blood pressure 137/109, pulse 79, respirations 17. He is on the mechanical ventilator. Mr. Esquivel is supine in bed on mechanical ventilation. Propofol was held for about 2 minutes before initiation of examination because he began to move his extremities at that time. He does not respond to loud voice. With the addition of noxious sternal rub, he grimaces, moves more readily in a nonpurposeful way. He does not open his eyes. Pupils are miotic, 2 mm, and reactive to bright light, OU. There is no blink to threat. There is some horizontal eye movement with passive head turning. Corneal reflexes present bilaterally. Face appears symmetric at rest and with grimace. There was a cough. Tone appears equal in the limbs. Power appears equal in the limbs and he is quite strong. Reflexes are 1+ at the knees, absent at the ankles. No clonus. Plantar response silent, 1+ at the wrists bilaterally. DIAGNOSTIC DATA: A head CT and cervical spine CT noncontrast showing no evidence of acute findings. There is degenerative disk disease. A head CT was personally reviewed. Labs: White count 13.5 on arrival, followed by 9.86. Normal sodium, BUN, creatinine. Blood sugars 97 to 120. A1c 5.3. Calcium 7.9. AST and ALT normal. Magnesium normal. High sensitivity troponin 7. Toxicology presumptive positive for amphetamines and cannabinoids. Serum ethyl alcohol 0. ASSESSMENT AND PLAN: Current global encephalopathy without focal neurologic feature. There is question of seizure at home or possibly syncope from other causes. Drug and alcohol abuse is noted and may be playing a role. Nonfocal neurologic exam and negative head CT are reassuring. I do not see evidence of ongoing seizure activity and would not recommend antiepileptic medication at this time. An EEG has been ordered and I will review that. We might consider a contrasted MRI of the brain depending on his clinical course. Thank you for the consultation. cc: Camelia Zurita MD
--- NOTE | 2019-12-31 13:40 | ECHO REPORT ---
ORDER DATE: 12/31/2019 INDICATION: Respiratory arrest. FINDINGS: 1. The right atrium appears normal in size. 2. Trace tricuspid regurgitation. Insufficient data to estimate RV systolic pressure. 3. Normal RV size and systolic function. 4. No significant pulmonic insufficiency. 5. Normal left atrial size with a volume index of 23. 6. No mitral valve prolapse. Mild mitral regurgitation. 7. Normal LV size, end-diastolic dimension of 4.2 cm. Normal wall thicknesses with a posterior and interventricular septal thickness of 0.9 and 0.8 cm respectively. There is reduction in LV systolic function with an estimated EF of 40% and minimal global hypokinesis. This is a very difficult study. The patient is on the ventilator. 8. Aortic valve opens well. There is no evidence of stenosis or insufficiency. 9. The aorta appears normal in visualized segments. 10. No pericardial effusion seen. cc: MD Astrid Stein MD
--- NOTE | 2019-12-31 14:42 | PROGRESS NOTE ---
DATE: 12/31/2019 SUBJECTIVE: The patient is currently sedated on the ventilator. No acute events noted overnight. The propofol drip is currently infusing. OBJECTIVE: Vital Signs: Temperature 98.5 degrees, blood pressure 137/89, heart rate 79 respirations 17, O2 saturation 99% on mechanical ventilator. Intake 913, output 850. General: This is a chronically ill-appearing elderly male currently sedated on the ventilator. HEENT: Normocephalic, atraumatic. Poor dentition noted. Heart: S1, S2 normal. Regular rate and rhythm. Lungs: Clear to auscultation bilaterally. No wheezing. No rales. No rhonchi. Abdomen: Positive bowel sounds. Soft, nontender, nondistended. Extremities: No edema, no cyanosis, no calf tenderness. Neurologic: The patient is currently sedated. LABS: White blood cell count 9.8, hemoglobin 12, hematocrit 38, platelets 225,000. ABG pH 7.38, pCO2 43, PO2 145, bicarb 25. Sodium 141, potassium 4, chloride 105, CO2 24, BUN 10, creatinine 0.6, glucose 97, triglycerides 199, albumin 3.3. Chest x-ray: No acute finding. ASSESSMENT AND PLAN: 1. Acute hypoxemic respiratory failure. There is a question of a possible seizure versus polysubstance abuse. Continue with ventilatory support as directed by the web assistant. 2. Global encephalopathy. Seizure disorder versus polysubstance abuse. The patient has been assessed by the neurologist. An EEG is currently pending. The patient will likely require repeat brain imaging when appropriate. 3. Chronic obstructive pulmonary disease. Aware. Continue with bronchodilator therapy. 4. Tobacco dependence. Aware. 5. Polysubstance abuse. Aware. 6. Gastrointestinal prophylaxis. Continue on IV Protonix. 7. Deep vein thrombosis prophylaxis. Continue on Lovenox. cc: Astrid Bolden MD [facility]
[2019-12-31] MEDS: ATIVAN IV PRN ×2 (16:43→23:12)
[2020-01-01] MEDS: DIPRIVAN 1% 1,000 MG/100 ML BOTTLE IV SCH ×3 (01:03→06:14)
[2020-01-01] MEDS: LOVENOX SUBQ SCH (02:52)
[2020-01-01] MEDS: DUONEB (A & A) INH SCH ×5 (03:25→23:20)
[2020-01-01 05:14] LABS: HEMATOCRIT 38.1 % (42.0-52.0); HEMOGLOBIN 12.5 g/dL (14.0-18.0); MCH 31.3 PG (27-31); MCHC 32.8 g/dL (33-37); MCV 95.3 FL (81-99); RDW 13.3 % (11.5-14.5); WBC 13.03 X1000 (4.8-10.8)
[2020-01-01 05:21] LABS: ALLEN TEST YES; BE -0.5 mmoll (-3.0-3.0); BLOOD TYPE ARTERIAL; HCO3-(ACT) 24.5 mmoll (20.0-26.0); PCO2(98.6) 39 mmHg (35-45); PO2(98.6) 74 mmHg (60-100); SAMPLE BLOOD; SRATE 15 BPM; TVOL 500 mL
[2020-01-01 05:25] LABS: MODALITY VENTILATOR
[2020-01-01 05:41] LABS: AGAP 12; ALB/GLOB RATIO 0.9; ALBUMIN 2.9 g/dL (3.5-5.0); ALKALINE PHOSPHATASE 77 U/L (32-122); BUN 6 mg/dL (8-22); CALCIUM 8.2 mg/dL (8.8-10.2); CHLORIDE 104 mmol/L (98-107); COSMO 275; CREATININE 0.5 mg/dL (0.7-1.2); ESTIMATED GFR > 60; GLUCOSE 94 mg/dL (70-104); GOT 15 U/L (10-34); GPT 9 U/L (10-44); POTASSIUM 3.4 mmol/L (3.5-5.1); SODIUM 139 mmol/L (136-145); TCO2 23 mmol/L (25-35); TOTAL BILIRUBIN 0.28 mg/dL (0.20-1.00)
[2020-01-01] MEDS: PROTONIX IV SCH (06:11)
[2020-01-01] MEDS: SODIUM CHLORIDE 0.9% INJ SCH (06:11)
[2020-01-01] MEDS: POTASSIUM CHLORIDE 20 MEQ/SWI 20 MEQ/100 ML IVPB IV SCH ×2 (06:38→08:10)
--- NOTE | 2020-01-01 06:52 | Diag Imaging Result Doc PS360 ---
CHEST-1 VIEW - 01/01/2020 INDICATION: dyspnea COMPARISON: 12/31/2019 FINDINGS: Support tubes are stable. The lungs are clear. Heart size is normal. No pneumothorax or pleural effusion. IMPRESSION: Negative exam. Electronically signed by Alejandro Leggett 01/01/2020 6:50 AM
[2020-01-01] MEDS: ATIVAN IV PRN ×4 (09:40→20:23)
[2020-01-01] MEDS: MORPHINE IV PRN ×4 (10:10→19:32)
[2020-01-01] MEDS: M.V.I.-12 10 ML, FOLIC ACID 1 MG, MAGNESIUM SULFATE 1 GM, THIAMINE 100 MG in NS 1,000 ML IV SCH (10:24)
--- NOTE | 2020-01-01 11:44 | PROGRESS NOTE ---
DATE: 01/01/2020 INTERVAL HISTORY: No acute events overnight. He had started becoming agitated and was trying to reach out to his ET tube. He had to be put in restraints. He is currently on 80 of propofol. SUBJECTIVE: Mr. Esquivel is intubated and sedated. VITALS: Temperature 98.4 degrees, pulse 81, respiratory rate 20, blood pressure 130/80. He is saturating 100% on 30% FiO2. PHYSICAL EXAMINATION: HEENT: He is not in any distress. Oral cavity is moist. Pupils are bilaterally equal reacting to light. He has good cough. Lungs: Air entry bilaterally equal. No wheeze, rhonchi, or crackles. Cardiovascular: S1, S2 normal. No murmur or gallop. Abdomen: Soft, nontender. Extremity: No lower extremity edema Neurologic: He is sedated. He starts becoming fidgety on painful stimuli. He is in four-point restraints. He has a Arauz catheter and endotracheal tube. Input and output: He had 900 mL of urine output. [place]S: [place] [address], hemoglobin 12.5, platelet 203,000. ABG suggestive of PO2 of 74 on 30% FiO2. He has hypokalemia with potassium of 3.4 which is currently being repleted. BUN of 6, creatinine 0.5. No microbiological data. IMAGING: Chest x-ray suggests negative exam. ASSESSMENT AND PLAN: 1. Acute respiratory failure in the setting of polysubstance abuse as well as possible seizure on presentation, status post intubation on 12/30/2019. Continue mechanical ventilation as per Pulmonology recommendation. Chlorhexidine for ventilator associated pneumonia prophylaxis and enoxaparin for deep venous thrombosis prophylaxis. He is also on pantoprazole for stress ulcer prophylaxis. Neurology team on board. 2. Acute global encephalopathy in the setting of polysubstance abuse versus possible seizure. EEG read is pending. Neurology team currently does not recommend any antiseizure medication. In the future, we will consider getting an MRI of his brain with contrast based on his course. 3. History of chronic obstructive pulmonary disease, not in acute exacerbation. I will continue him on inhaled bronchodilators. 4. Polysubstance abuse including cocaine, amphetamine, cannabis, and alcohol. Continue intravenous multivitamin. I will educate him about cessation of these substances in the future once he is more awake and able to participate in the care, his hypothermia on presentation has resolved. DISPOSITION: The patient's condition is critical. I will continue to monitor him in ICU. cc: John Lee MD
[2020-01-01] MEDS: HALDOL IV PRN ×3 (11:49→19:32)
[2020-01-01] MEDS: OFIRMEV 1000 MG/ISOTONIC SOLN 1,000 MG/100 ML BOTTLE IV PRN ×2 (13:07→19:33)
[2020-01-01] MEDS ORDERED: NS 250 ML ONE (13:31)
[2020-01-01 13:55] LABS: INR 1.04; PROTIME 13.7 Seconds (11.0-16.0)
[2020-01-01] MEDS ORDERED: VANCOMYCIN IV PER PHARMACY MISC SCH (16:15)
--- NOTE | 2020-01-01 16:44 | Diag Imaging Result Doc PS360 ---
EXAM: CHEST-PORTABLE 01/01/2020 HISTORY: Evalaute for pneumonia TECHNIQUE: AP portable at 1634 COMMENT: Compared to the previous study of 01/01/2020 at 0545 there is less apparent opacity in the retrocardiac region but there is some suggestion of ill-defined opacity over the left upper lobe. The endotracheal tube and NG tube have been removed. There is a PICC line on the right with its tip in the right atrium. IMPRESSION: Questionable bronchopneumonia. Electronically signed by Loy Vizcaino 01/01/2020 4:42 PM
[2020-01-01 17:09] LABS: ALLEN TEST YES; BE -1.9 mmoll (-3.0-3.0); BLOOD TYPE ARTERIAL; HCO3-(ACT) 23.4 mmoll (20.0-26.0); MODALITY COOL AEROSOL; O2(CT) 17.2 mL/dL (15.0-23.0); O2HB 95.9 % (95.0-99.0); PCO2(98.6) 35 mmHg (35-45); PO2(98.6) 86 mmHg (60-100); SAMPLE BLOOD; SAO2 96.6 % (95.0-100.0); THB 12.7 g/dL (11.5-17.4); pH(98.6) 7.41 (7.35-7.45)
[2020-01-01 17:15] LABS: URINE SOURCE CATH
[2020-01-01 17:19] LABS: BILIRUBIN URINE NEGATIVE (NEGATIVE); BLOOD URINE MODERATE (NEGATIVE); COLOR YELLOW; GLUCOSE URINE NEGATIVE (NEGATIVE); KETONE URINE 100 mg/dL (NEGATIVE); LEUKOCYTES URINE NEGATIVE (NEGATIVE); NITRITE URINE NEGATIVE (NEGATIVE); PROTEIN URINE TRACE mg/dL (NEGATIVE); SP GRAVITY URINE 1.016; TURBIDITY URINE CLEAR (CLEAR); UR EPITHELIAL CELLS <10 /HPF (<10); URINE BACTERIA NEGATIVE /HPF; URINE RBC TNTC /HPF (<10); URINE WBC <10 /HPF (<10); UROBILINOGEN URINE NORMAL (NORMAL)
[2020-01-01] MEDS: AZACTAM 1 GM in NS 50 ML IV SCH (17:22)
--- NOTE | 2020-01-01 17:29 | Extremity Venous Study ---
PROCEDURE NAME: Venous U/S Bilateral Legs - 12/31/2019 REQUESTING PHYSICIAN: Dr. Astrid Bolden MD. SHOEMAKER APPRENTICE: Arcelia. INDICATIONS: Edema. EQUIPMENT: [employer] Vivid E9 ultrasound system a 9 L-D transducer. FINDINGS: Images of bilateral lower extremity venous systems were obtained in both sagittal and transverse planes. Doppler was used to evaluate veins for spontaneity, phasicity, respiratory excursion, and digital augmentation. RESULTS: Technically difficult study secondary to patient being on the ventilator, noncooperative. This is somewhat of a limited exam, which may limit the interpretive ability of this study but on this study, there is no obvious superficial or deep venous thrombosis noted. Interpretation somewhat limited study secondary to patient being on the ventilator, uncooperative but no obvious superficial or deep venous thrombosis noted. cc: MD Astrid Puri MD
[2020-01-01] MEDS: VANCOMYCIN 1,500 MG in NS 250 ML IV SCH (18:51)
[2020-01-01] MEDS: LR 1,000 ML IV SCH (19:36)
--- NOTE | 2020-01-01 20:08 | EKG Report ---
Test Performed on : 01/01/2020 7:42:53 PM Test Reason : Tachycardia. Evaluate for heart rhythm Blood Pressure : / mmHG Vent. Rate : 126 BPM Atrial Rate : 126 BPM P-R Int : 138 ms QRS Dur : 080 ms QT Int : 312 ms P-R-T Axes : 074 073 054 degrees QTc Int : 451 ms Sinus tachycardia. Nonspecific ST abnormality Abnormal ECG When compared with ECG of 31-DEC-2019 10:50, Vent. rate has increased BY [address] now depressed in Anterolateral leads Confirmed by Alex Maldonado MD ([id number]) on 01/04/2020 12:15:19 PM
[2020-01-01] MEDS: PERIDEX MT SCH (20:23)
[2020-01-01] MEDS ORDERED: PHENOBARBITAL IV ONE ×2 (20:39→21:40)
[2020-01-01] MEDS ORDERED: ATIVAN 20 MG in NS 190 ML IV SCH (20:45)
[2020-01-01] MEDS: ATIVAN 20 MG in NS 190 ML IV SCH (21:25)
--- NOTE | 2020-01-01 22:24 | PULMONOLOGY PROGRESS NOTE ---
DATE: 01/01/2020 SUBJECTIVE: The patient was seen earlier this morning. He was placed on a spontaneous breathing trial. He would open his eyes. He had no increased work of breathing. He was subsequently extubated. OBJECTIVE: Vital Signs: Maximum temperature in the last 24 hours was 99.9 degrees. Blood pressure 137/89, heart rate 79, respiratory rate 16, oxygen saturation 100% HEENT:: Pupils are equal and reactive. Oropharynx appears clear. Neck: Supple. Chest: Occasional rhonchi bilaterally. Cardiac: S1-S2. Abdomen: Soft. Extremities: Without edema. LABORATORIES: Chest x-ray reveals endotracheal tube in good position. Lung seo are clear. Arterial blood gas reveals a pH 7.40, pCO2 of 39, pO2 of 74. Sodium 139, potassium 3.4, chloride 104, bicarbonate 23, BUN 6, creatinine 0.5. White blood count 13.03, hemoglobin 12.5, platelet count 203,000. IMPRESSION: A 54-year-old with: 1. Seizure. 2. Acute hypoxemic respiratory failure. 3. Encephalopathy. 4. Some polysubstance abuse. 5. Nicotine addiction with ongoing tobacco use. DISCUSSION: A 54-year-old with problems outlined above. There is some question of possible cardiac arrest or the need for defibrillation, although this was not clear from the intake records. He does open his eyes but does not follow commands. He appears to be comfortable on a spontaneous breathing trial. PLAN: 1. Extubation this morning given adequate oxygenation and a normal chest x-ray. 2. Continue multivitamin. 3. Observe for withdrawal symptoms. cc: Sanchez Hamilton MD
--- NOTE | 2020-01-01 22:51 | NEUROLOGY PROGRESS NOTE ---
DATE: 01/01/2020 SUBJECTIVE: The patient has been extubated since I last saw him. OBJECTIVE: Vital signs: Temperature current 101.8, blood pressure 164/71, pulse 120s to 140s, respirations 21. Mr. Esquivel is supine in bed. He has a face mask on. He is a bit agitated, mumbling incoherently. He does not follow commands. He does not answer my questions, or at least not in a way that I can understand what he is saying. He is in 4-point restraints. Pupils are equal, miotic, but briskly reactive to bright light. Gaze is conjugate. There is at least full lateral eye movement. Face appears to be symmetric with equal grimace. He appears to have good and equal power in the limbs. He responds to mild noxious stimuli in all limbs equally. LABORATORY DATA: White count of 13. Normal sodium and glucose. Blood cultures are pending. ASSESSMENT AND PLAN: Global encephalopathy without focal neurologic feature. There was a question of possible single seizure at home or a syncopal event. Drug and alcohol abuse may be contributing. Again, at this point, I would not recommend antiepileptic medication at this time. I do not see clinical evidence of ongoing seizure activity. I will reorder the EEG now that he is more able to be off of the propofol. We might need to consider further imaging, but that will depend on his clinical course. cc: Camelia Zurita MD
[2020-01-02] MEDS: MORPHINE IV PRN ×4 (00:26→18:33)
[2020-01-02] MEDS: HALDOL IV PRN (00:26)
[2020-01-02] MEDS: AZACTAM 1 GM in NS 50 ML IV SCH ×3 (01:30→16:27)
[2020-01-02] MEDS: LOVENOX SUBQ SCH (02:03)
[2020-01-02] MEDS: DUONEB (A & A) INH SCH ×5 (02:54→21:44)
[2020-01-02] MEDS: OFIRMEV 1000 MG/ISOTONIC SOLN 1,000 MG/100 ML BOTTLE IV PRN (03:14)
[2020-01-02] MEDS: VANCOMYCIN 1,500 MG in NS 250 ML IV SCH ×2 (05:08→17:03)
[2020-01-02] MEDS: SODIUM CHLORIDE 0.9% INJ SCH (06:06)
[2020-01-02] MEDS: PROTONIX IV SCH (06:07)
[2020-01-02 06:16] LABS: AGAP 10; BUN 5 mg/dL (8-22); CALCIUM 7.9 mg/dL (8.8-10.2); CHLORIDE 101 mmol/L (98-107); COSMO 267; CREATININE 0.4 mg/dL (0.7-1.2); ESTIMATED GFR > 60; GLUCOSE 100 mg/dL (70-104); MAGNESIUM 1.5 mg/dL (1.5-2.7); PHOSPHORUS 2.3 mg/dL (2.7-4.5); POTASSIUM 3.5 mmol/L (3.5-5.1); SODIUM 135 mmol/L (136-145); TCO2 24 mmol/L (25-35)
[2020-01-02] MEDS: ATIVAN 20 MG in NS 190 ML IV SCH (06:59)
--- NOTE | 2020-01-02 08:10 | EKG Report ---
Test Performed on : 01/02/2020 06:30:34 AM Test Reason : Follow up QTc Blood Pressure : / mmHG Vent. Rate : 087 BPM Atrial Rate : 087 BPM P-R Int : 144 ms QRS Dur : 094 ms QT Int : 384 ms P-R-T Axes : 071 071 067 degrees QTc Int : 462 ms Normal sinus rhythm. Normal ECG When compared with ECG of 01-JAN-2020 19:42, (Unconfirmed) ST no longer depressed in Lateral leads Confirmed by Alex Maldonado MD ([id number]) on 01/02/2020 8:32:29 AM
[2020-01-02] MEDS: PERIDEX MT SCH ×2 (08:42→21:41)
[2020-01-02] MEDS: NS IV SCH (09:26)
[2020-01-02] MEDS: THIAMINE IV SCH (09:26)
[2020-01-02 09:51] LABS: BASO# 0.02 X1000 (0.0-0.2); BASO% 0.2 % (0.0-0.8); EOS# 0.08 X1000 (0.0-0.7); EOS% 0.8 % (0.0-10.0); HEMATOCRIT 35.9 % (42.0-52.0); HEMOGLOBIN 11.4 g/dL (14.0-18.0); IMM GRAN# 0.02 X1000 (0.0-0.04); IMM GRAN% 0.2 % (0.0-0.5); LYMPH# 0.94 X1000 (1.2-3.4); LYMPH% 8.9 % (20.5-51.1); MCHC 31.8 g/dL (33-37); MCV 94.5 FL (81-99); MONO# 0.51 X1000 (0.11-0.59); MONO% 4.8 % (1.7-9.3); MPV 9.7 FL (7.4-10.4); NEUT# 8.95 X1000 (1.4-6.5); NEUT% 85.1 % (42.2-75.2); PLT 181 X1000 (130-400); RDW 12.9 % (11.5-14.5); WBC 10.52 X1000 (4.8-10.8)
[2020-01-02] MEDS: POTASSIUM CHLORIDE 20 MEQ/SWI 20 MEQ/100 ML IVPB IV SCH ×2 (10:04→11:57)
[2020-01-02 10:14] LABS: BANDS 10 % (0-1); EOS 2 % (1-10); LYMPHS 8 % (21-51); MONO 2 % (1-9); SEGS 78 % (42-75)
--- NOTE | 2020-01-02 10:45 | PROGRESS NOTE ---
DATE: 01/02/2020 INTERVAL HISTORY: Yesterday he was extubated. However, after extubation he started becoming tachycardic with heart rate as high as 140. He was also febrile, which did not get better despite acetaminophen. He also pulled out his IV lines and a PICC line had to be introduced. I had started him on intravenous fluids. His EKG had normal sinus rhythm. Blood cultures, urine cultures, and chest x-ray were performed which so far have been unremarkable. Overnight, he also received intravenous phenobarbital and intravenous lorazepam drip was started. SUBJECTIVE: Currently he is sedated on lorazepam drip. However, with strong verbal stimuli he starts flickering. CURRENT VITALS: Temperature of 100.4 degrees, pulse 87, respiratory 16, blood pressure 133/86. He is saturating 98% on 40% mask. PHYSICAL EXAMINATION: HEENT: Pupils are bilaterally equal, reacting to light. Oral cavity is moist. Lungs: Air entry bilaterally equal. No wheeze, rhonchi, or crackles. Heart: S1, S2 normal. No murmur, rub or gallop. Abdomen: Soft, nontender. Extremities: No lower extremity edema. He is sedated on lorazepam. He is in four-point restraints. He has a Arauz catheter. Input and output suggest 2.1 liters of urine output in the last 24 hours. LABS: CBC is pending. BMP suggestive of BUN of 5, creatinine 0.4. His hypokalemia with potassium of 3.5 and hypomagnesemia with magnesium of 1.5 are currently being repleted. MICROBIOLOGY: No positive data so far. X-RAYS: Chest x-ray performed yesterday evening had questionable bronchopneumonia and left upper lobe. ASSESSMENT AND PLAN: 1. Sepsis of unclear source. Differential includes pneumonia versus other etiologies. Urinalysis was unremarkable. Follow up final blood culture results. Continue intravenous vancomycin and intravenous aztreonam. 2. Tachycardia, fever, agitation. This could also be related to hemodynamic instability, related to withdrawal from substance use, or due to toxic effect of substance abuse. I will continue to monitor him in intensive care unit. Continue intravenous fluids. I will replete his hypokalemia and hypomagnesemia. His urine toxicology was positive for amphetamine and cannabis. Previously, he had alcohol use disorder, though his alcohol was undetectable during this hospital admission. 3. Acute respiratory failure in the setting of amphetamine, cannabis abuse and possible seizure on presentation, status post intubation on 12/30/2019. He was extubated on January 01. I will continue to monitor his respiratory status. Continue enoxaparin for deep vein thrombosis prophylaxis. I have discontinued pantoprazole. Neurology team recommendations are appreciated. 4. Seizure at home and Acute global encephalopathy. Continue to monitor his mental status. CT scan of head on presentation was unremarkable for acute pathology. 5. Polysubstance abuse, including amphetamine, cannabis, prior history of alcohol use disorder. The proper history regarding substance abuse, frequency and dose have not been clear. I will keep him on intravenous lorazepam drip according to protocol with close monitoring of his respiratory status. I will also keep him on intravenous haloperidol and morphine as needed. I will keep him on high-dose intravenous thiamine and intravenous multivitamin. DISPOSITION: Mr. Esquivel's condition is still critical. More than 30 minutes of critical care time was spent in taking of this patient. I discussed plan of care with the patient's nurse. I also met with the patient's early in the morning time, who was a little upset for some reason, and she used curse words to vent out her frustrations around health aspect of Mr. Esquivel. She told me that Mr. Esquivel does not use substances regularly, and it was just of one bad probably batch of amphetamines that caused everything. I explained to her that currently his condition is critical, and his mental status could be related to intoxication versus other etiologies or withdrawal from the substances she refuses to believe. In any case, I explained to her that the management would remain to support his mental status and give him medication as necessary. The patient's sister was also at bedside, however did not want me to talk with the sister. cc: John Lee MD MTDD
[2020-01-02] MEDS: LR 1,000 ML IV SCH (11:39)
[2020-01-02] MEDS: MAGNESIUM SULFATE 2 GM/S.W.I. 2 GM/50 ML IVPB IV SCH ×2 (14:03→14:49)
[2020-01-02] MEDS: M.V.I.-12 10 ML, FOLIC ACID 1 MG, MAGNESIUM SULFATE 1 GM, THIAMINE 100 MG in NS 1,000 ML IV SCH (14:41)
--- NOTE | 2020-01-02 17:10 | NEUROLOGY PROGRESS NOTE ---
DATE: 01/02/2020 SUBJECTIVE: Mr. Esquivel presented with poor responsiveness. He developed respiratory failure. He was intubated and sedated. He has been extubated. He developed agitation requiring sedation. There is history of ethanol and substance use. Dr. Zurita saw him for initial neurology consultation. Imaging includes noncontrast CT of the head showing nothing remarkable. OBJECTIVE: On exam, he appears to be sleeping peacefully. There is full lateral eye movement with passive head turning. Facial motility is symmetric. Limb tone is symmetric. Neck is supple. Motor Scooter Mechanic at the bedside had some questions regarding his previous and recent substance use and his hospital management. I was not able to answer her questions. IMPRESSION: Global encephalopathy, currently sedated, likely multiple factors for presentation, including illicit drug use, possibly benzodiazepine withdrawal, possibly alcohol withdrawal. There was question of seizure prior to presentation, but that has not been made a certain diagnosis. The EEG is planned and will be more helpful when he is not sedated. Further workup including imaging with MRI can be considered depending on his clinical course. Thanks for asking Neurology to see Mr. Esquivel. cc: Wil Carbajal III, MD
[2020-01-03] MEDS: MORPHINE IV PRN ×2 (00:44→14:40)
[2020-01-03] MEDS: ATIVAN 20 MG in NS 190 ML IV SCH (00:45)
[2020-01-03] MEDS: AZACTAM 1 GM in NS 50 ML IV SCH ×3 (00:45→16:13)
[2020-01-03] MEDS: LOVENOX SUBQ SCH (03:22)
[2020-01-03] MEDS: DUONEB (A & A) INH SCH ×4 (03:35→22:23)
[2020-01-03] MEDS: VANCOMYCIN 1,500 MG in NS 250 ML IV SCH (05:08)
[2020-01-03] MEDS: LR 1,000 ML IV SCH ×2 (05:15→23:58)
--- NOTE | 2020-01-03 06:37 | Diag Imaging Result Doc PS360 ---
CHEST-PORTABLE - 01/03/2020 INDICATION: abnormal exam COMPARISON: 01/01/2020 FINDINGS: Stable right PICC line in good position. No obvious infiltrates. Heart size is normal. No pneumothorax or pleural effusion. IMPRESSION: No acute disease. Electronically signed by Alejandro Leggett 01/03/2020 6:34 AM
[2020-01-03 06:57] LABS: HEMOGLOBIN 15.1 g/dL (14.0-18.0); MCH 30.9 PG (27-31); MCHC 33.6 g/dL (33-37); MCV 92.2 FL (81-99); PLT 143 X1000 (130-400); RBC 4.88 XMIL (4.7-6.1); RDW 12.8 % (11.5-14.5); WBC 5.31 X1000 (4.8-10.8)
[2020-01-03 06:58] LABS: BASO# 0.01 X1000 (0.0-0.2); BASO% 0.2 % (0.0-0.8); EOS# 0.18 X1000 (0.0-0.7); EOS% 3.4 % (0.0-10.0); LYMPH% 13.2 % (20.5-51.1); MONO# 0.31 X1000 (0.11-0.59); MONO% 5.8 % (1.7-9.3); MPV 10.5 FL (7.4-10.4); NEUT# 4.11 X1000 (1.4-6.5); NEUT% 77.4 % (42.2-75.2)
[2020-01-03 07:05] LABS: AGAP 15; BUN 6 mg/dL (8-22); CALCIUM 8.3 mg/dL (8.8-10.2); CHLORIDE 100 mmol/L (98-107); COSMO 274; CREATININE 0.5 mg/dL (0.7-1.2); ESTIMATED GFR > 60; GLUCOSE 70 mg/dL (70-104); POTASSIUM 3.6 mmol/L (3.5-5.1); SODIUM 139 mmol/L (136-145); TCO2 24 mmol/L (25-35)
--- NOTE | 2020-01-03 07:12 | PULMONOLOGY PROGRESS NOTE ---
DATE: 01/02/2020 SUBJECTIVE: The patient is breathing easier than yesterday evening. He is arousable, but is on an Ativan drip. OBJECTIVE: Vital Signs: Maximum temperature in the last 24 hours is 101.6 degrees, temperature this morning is 98.1, blood pressure 136/76, heart rate 95, oxygen saturation 100% on Venturi mask. HEENT: Pupils are midpoint and more reactive. Oropharynx appears clear. Neck: Supple. Chest: Wheezing bilaterally, but better air flow than yesterday evening. Cardiac: Increased rate. Regular rhythm. Abdomen: Soft. Extremities: Trace edema. LABORATORY DATA: White blood count 10.52, hemoglobin 11.4, platelet count 181,000. Sodium 135, potassium 3.5, chloride 101, bicarb 24, BUN 5, creatinine 0.4. IMPRESSION: A 54-year-old with: 1. Seizure. 2. Acute hypoxemic respiratory failure. 3. Encephalopathy. 4. Possible pneumonia. 5. Polysubstance abuse. 6. Nicotine addiction with ongoing tobacco use. 7. Alcohol withdrawal syndrome. PLAN: 1. Continue Ativan drip per protocol. 2. Continue ICU monitoring given his acute illness. 3. Continue multivitamin. 4. Followup chest x-ray tomorrow morning. cc: Sanchez Hamilton MD
[2020-01-03] MEDS: NS IV SCH (08:18)
[2020-01-03] MEDS: THIAMINE IV SCH (08:18)
[2020-01-03] MEDS: M.V.I.-12 10 ML, FOLIC ACID 1 MG, MAGNESIUM SULFATE 1 GM, THIAMINE 100 MG in NS 1,000 ML IV SCH (10:58)
[2020-01-03] MEDS: ATIVAN IV PRN ×2 (10:58→14:41)
[2020-01-03] MEDS ORDERED: BLISTEX MEDICATED BERRY LIP BALM TOP PRN (11:56)
--- NOTE | 2020-01-03 12:53 | PROGRESS NOTE ---
DATE: 01/03/2020 INTERVAL HISTORY: No acute events overnight. His vitals suggested he did not have any fever. One of the two blood cultures is growing coagulase-negative staphylococcus, which is likely a contaminant. He has been tachycardic. He has been on a benzodiazepine drip. SUBJECTIVE: He is in restraints. He wakes up to verbal stimuli. He occasionally answers questions but appears confused. VITALS: Temperature of 98.7 degrees, pulse 83, respiratory rate 22, blood pressure 153/78, he is saturating 97% on a 40% Ventimask. PHYSICAL EXAMINATION: He does have erythema affecting his entire body. Oral cavity has pool of secretions, which is with good cough reflex. Pupils are bilaterally equal, reactive to light. Air entry bilaterally equal. No wheeze, rhonchi, or crackles. S1 and S2 are normal. No murmur, rub, or gallop. He has a right-sided arm PICC line. Abdomen is soft and nontender. No hepatosplenomegaly. He has a urine catheter. He is moving all extremities spontaneously. He is drowsy but arousable. He is on a lorazepam drip. Input and output suggest, in the last 24 hours, he had 2 L of urine output. LABS: Suggestive of WBC of 5000, hemoglobin 15.1, platelets 143,000. BUN of 6, creatinine 0.5, potassium 3.6. MICROBIOLOGY: One of the two blood cultures is growing coagulase-negative staphylococci. IMAGING: Chest x-ray performed does not have any acute disease. ASSESSMENT AND PLAN: 1. Sepsis of unclear source. One of the two blood cultures is growing coagulase-negative staphylococci. My plan is to continue him on intravenous vancomycin and aztreonam until he has 24 to 48 hours of fever free period. Culture data have been negative so far. 2. Fever, agitation, and tachycardia, could be related to withdrawal from substance use or toxicity from substance use or alcohol withdrawal. I will continue to monitor him in the intensive care unit. He has not had fever recently. 3. Acute respiratory failure in the setting of multiple substance use and possibly seizure on presentation, and requiring intubation on 12/30/2019. He was extubated on January 01. Continue to monitor his respiratory status, enoxaparin for deep venous thrombosis prophylaxis. 4. Acute encephalopathy and suspected seizure at home. Could be in the setting of alcohol withdrawal, benzodiazepine withdrawal, or intoxication with substances. He is off the benzodiazepine drip and I will give him as needed benzodiazepines. Neurology team on board and are likely planning electroencephalogram. His CT scan of the head was unremarkable. 5. Polysubstance abuse including amphetamines, cannabis, and prior history of alcohol use disorder. Continue intravenous lorazepam as needed. He has been off intravenous drip now. I will also keep him on intravenous haloperidol and morphine as needed. Continue intravenous high-dose thiamine and multivitamin. 6. Disposition. I will continue to monitor patient inside the hospital as I await improvement in his mental status. Plan of care discussed with the nursing team. cc: John Lee MD
[2020-01-03] MEDS: NICODERM PATCH TD SCH (16:13)
[2020-01-03] MEDS ORDERED: VANCOMYCIN 1,800 MG in NS 250 ML IV SCH (18:30)
[2020-01-03] MEDS: VANCOMYCIN 1,800 MG in NS 250 ML IV SCH (18:32)
--- NOTE | 2020-01-03 21:08 | PULMONOLOGY PROGRESS NOTE ---
DATE: 01/03/2020 SUBJECTIVE: The patient is arousable to alert. He does not follow commands. He has no increased work of breathing. She remains on the Ativan drip. OBJECTIVE: Vital Signs: The patient is afebrile for the last 24 hours. Blood pressure 157/89, heart rate 84, respiratory rate 17, oxygen saturation 95% on room air. HEENT: Pupils are equal and reactive. Oropharynx appears clear. Neck: Supple. Chest: Prolonged expiratory phase without wheezing or rhonchi. Cardiac: S1, S2. Abdomen: Soft. Extremities: Without edema. LABORATORY AND DIAGNOSTIC DATA: White blood count 5.3, hemoglobin 15.1, platelet count 143,000. Sodium 139, potassium 3.6, chloride 100, bicarbonate 24, BUN 6, creatinine 0.5. Chest x-ray reveals slight prominence of left suprahilar markings, but no definite infiltrates. IMPRESSION: A 54-year-old with: 1. Seizure. 2. Acute hypoxemic respiratory failure. 3. Encephalopathy/alcohol withdrawal syndrome. 4. Polysubstance abuse. 5. Nicotine addiction with ongoing tobacco use. DISCUSSION: A 54-year-old with problems outlined above. He has had some marginal improvement over the last 24 hours. He does have 1 positive blood culture indicating bacteremia, which is likely a contaminant. He has no evidence of severe sepsis and no evidence of septic shock. PLAN: 1. Complete Ativan drip. 2. Continue multivitamin. 3. Complete antibiotics under the direction of Dr. Lee. 4. Ongoing education with the patient and about the importance of tobacco and drug cessation. cc: Sanchez Hamilton MD
--- NOTE | 2020-01-03 21:08 | NEUROLOGY PROGRESS NOTE ---
DATE: 01/03/2020 SUBJECTIVE: Mr. Esquivel continues sedated, but less heavily so today. He is complaining about being hungry and asking to go home. OBJECTIVE: On exam this morning, with minimal stimulation, he was awake, alert, attentive, answering questions. Speech is dysarthric but easily understood. Language function is intact on brief bedside testing. I did not test his cognitive function. Head and neck are unremarkable. There is no meningismus. He has full horizontal eye movement. Visual seo are full on gross testing by confrontational finger counting. Limb tone is symmetric. He used his hands purposefully and vigorously pulling against the restraints bilaterally. IMPRESSION: Global encephalopathy, less heavily sedated, much improved level of alertness. PLAN: I do not have any new thoughts or new suggestions from Neurology standpoint. EEG is still under consideration and will be more helpful when he is less sedated, particularly with less benzodiazepine on board. Thanks for asking Neurology to see Mr. Esquivel. cc: MD ARLETH Cordova III
[2020-01-04] MEDS: AZACTAM 1 GM in NS 50 ML IV SCH (00:48)
[2020-01-04] MEDS: LOVENOX SUBQ SCH (01:30)
[2020-01-04] MEDS: DUONEB (A & A) INH SCH ×4 (03:15→22:55)
[2020-01-04] MEDS: VANCOMYCIN 1,800 MG in NS 250 ML IV SCH (05:37)
[2020-01-04 07:13] LABS: AGAP 18; BUN 6 mg/dL (8-22); CALCIUM 8.3 mg/dL (8.8-10.2); CHLORIDE 102 mmol/L (98-107); COSMO 275; CREATININE 0.5 mg/dL (0.7-1.2); ESTIMATED GFR > 60; GLUCOSE 71 mg/dL (70-104); MAGNESIUM 1.4 mg/dL (1.5-2.7); PHOSPHORUS 3.2 mg/dL (2.7-4.5); POTASSIUM 3.6 mmol/L (3.5-5.1); SODIUM 140 mmol/L (136-145); TCO2 20 mmol/L (25-35)
[2020-01-04] MEDS: THIAMINE IV SCH (07:36)
[2020-01-04] MEDS: NS IV SCH (07:36)
[2020-01-04] MEDS ORDERED: TYLENOL PO PRN (08:06)
[2020-01-04] MEDS ORDERED: ATIVAN IV PRN (08:06)
[2020-01-04] MEDS: POTASSIUM CHLORIDE 20 MEQ/SWI 20 MEQ/100 ML IVPB IV SCH ×2 (08:15→08:59)
[2020-01-04] MEDS: MAGNESIUM SULFATE 2 GM/S.W.I. 2 GM/50 ML IVPB IV SCH ×2 (08:15→12:20)
[2020-01-04] MEDS: THERA M PLUS PO SCH (08:21)
[2020-01-04] MEDS: NICODERM PATCH TD SCH (08:21)
[2020-01-04] MEDS: VITAMIN B-1 PO SCH (08:21)
--- NOTE | 2020-01-04 10:37 | PROGRESS NOTE ---
DATE: 01/04/2020 INTERVAL HISTORY: No acute events overnight. SUBJECTIVE: Mr. Esquivel is awake and alert. He is hungry. He denies any chest pain, shortness of breath. He states he is occasionally coughing which is not unusual for him. He states he has a diagnosis of chronic obstructive pulmonary disease and chronic hypoxic respiratory failure. He is supposed to be on home oxygen. He states he did drink liquid with recreational substances that he knew nothing about. He denies any regular use of recreational substances, though he smokes occasional marijuana and drinks couple of beers over the weekend. VITALS: Currently, temperature 99.6 degrees, pulse 97, respiratory rate 16, blood pressure 135/94. Saturating 98% 2 L nasal cannula. PHYSICAL EXAMINATION: General: Not in acute distress. HEENT: Oral cavity is moist. Lungs: Air entry bilaterally equal. No wheeze, rhonchi. Cardiovascular: S1, S2 normal. No murmur, gallop. Abdomen: Soft, nontender. He does not have lower extremity edema. He has a right-sided PICC line and urine catheter. He is alert and oriented x3 and able to answer all questions appropriately. LABS: Suggestive of BUN of 6, creatinine of 0.5. He does have low magnesium which is currently being repleted. He does have slightly elevated anion gap of 18. Follow up with [facility] tomorrow. One of the 2 blood cultures growing coagulase negative Staphylococcus is likely a contaminant. ASSESSMENT AND PLAN: 1. Acute respiratory failure in the setting of amphetamine and cannabis use and possibly seizure on presentation requiring intubation between December 30 and January 01. He is status post intravenous lorazepam drip. Continue oxygenation as needed to maintain saturation more than 94%, enoxaparin for DVT prophylaxis. 2. Acute encephalopathy and suspected seizure at home in the setting of substance abuse, now resolved. I will stop intravenous lorazepam drip. Continue as needed haloperidol and lorazepam. He is alert and oriented x3 and may not need any EEG or MRI imaging. CT scan head was unremarkable. Appreciate Neurology recommendations. 3. Polysubstance abuse including amphetamine, cannabis, tobacco, and occasional alcohol. I counseled about quitting these substances related to adverse health effects. He understood it. 4. Fever, agitation, tachycardia related to withdrawal from substance use or transient bacteremia of unclear source, now resolved. One of the 2 blood cultures growing Staphylococcus coagulase negative, which could be a contaminant. I will stop antibiotics and observe him off antibiotics. He has not had any fever in the last 48 hours. 5. Disposition. I will remove Arauz catheter. Start patient on mechanical soft diet. Transfer him to routine medical floor. Plan of care discussed with the patient and his questions have been satisfactorily answered. I will also replete potassium and magnesium for hypokalemia and hypomagnesemia. cc: John Lee MD
--- NOTE | 2020-01-04 16:43 | NEUROLOGY PROGRESS NOTE ---
DATE: 01/04/2020 SUBJECTIVE: Mr. Esquivel is much improved. His recollection of events just before admission is incomplete. He reports no prior seizure diagnosis, but he does recall having EEG performed many years ago, and he admits there might have been a question of seizure then. He reports he has not taken medicine for seizure control. OBJECTIVE: Mr. Esquivel is awake, alert, attentive. He had appropriate conversation with me. Speech is not dysarthric. Language function is intact. IMPRESSION: History on presentation this time was consistent with seizure. This seems almost certainly related to substance use, intoxication, withdrawal, or combination. Clinical course has been stable here. EEG has been considered, but postponed because of heavy sedation. Now that he is alert, I will reorder the EEG. That may be done today or later. Thanks for asking Neurology to see Mr. Esquivel. cc: MD ARLETH Cordova III
--- NOTE | 2020-01-04 21:11 | PULMONOLOGY PROGRESS NOTE ---
DATE: 01/04/2020 SUBJECTIVE: The patient is awake, alert, and conversant. He is anxious to be discharged. OBJECTIVE: Vital Signs: The patient has been afebrile for the last 24 hours. Blood pressure 113/58, heart rate 105, respiratory rate 16, oxygen saturation 98% on 2 L per nasal cannula. HEENT: Pupils are equal and reactive. Oropharynx appears clear. Neck: Supple. Chest: Reveals good air entry bilaterally without wheezing or rhonchi. Cardiac: S1-S2. Abdomen: Soft. Extremities: Without edema. IMPRESSION: A 54-year-old with: 1. Seizure. 2. Acute hypoxemic respiratory failure. 3. Encephalopathy with subsequent resolution. 4. Polysubstance abuse. 5. Nicotine addiction with ongoing tobacco use. PLAN: 1. Wean and discharge oxygen (complete). 2. Agree with nicotine replacement therapy. 3. Strongly encourage patient to discontinue tobacco products and all drug products. He was warned that his life is at risk if he continues his current regimen. cc: Sanchez Hamilton MD
[2020-01-05] MEDS: DUONEB (A & A) INH SCH ×2 (03:32→10:29)
[2020-01-05 07:27] LABS: BASO# 0.04 X1000 (0.0-0.2); BASO% 0.8 % (0.0-0.8); EOS# 0.23 X1000 (0.0-0.7); EOS% 4.5 % (0.0-10.0); HEMATOCRIT 37.7 % (42.0-52.0); HEMOGLOBIN 11.9 g/dL (14.0-18.0); LYMPH# 1.14 X1000 (1.2-3.4); LYMPH% 22.1 % (20.5-51.1); MCH 29.3 PG (27-31); MCHC 31.6 g/dL (33-37); MCV 92.9 FL (81-99); MONO# 0.41 X1000 (0.11-0.59); MONO% 7.9 % (1.7-9.3); MPV 9.9 FL (7.4-10.4); NEUT# 3.34 X1000 (1.4-6.5); NEUT% 64.7 % (42.2-75.2); PLT 253 X1000 (130-400); RBC 4.06 XMIL (4.7-6.1); RDW 12.5 % (11.5-14.5); WBC 5.16 X1000 (4.8-10.8)
[2020-01-05 08:01] VITALS: BP 99/76
[2020-01-05 08:04] LABS: AGAP 13; BUN 9 mg/dL (8-22); CALCIUM 8.6 mg/dL (8.8-10.2); CHLORIDE 104 mmol/L (98-107); COSMO 292; CREATININE 0.6 mg/dL (0.7-1.2); ESTIMATED GFR > 60; GLUCOSE 141 mg/dL (70-104); POTASSIUM 3.7 mmol/L (3.5-5.1); SODIUM 146 mmol/L (136-145); TCO2 29 mmol/L (25-35)
[2020-01-05] MEDS: VITAMIN B-1 PO SCH (08:12)
[2020-01-05] MEDS: THERA M PLUS PO SCH (08:12)
[2020-01-05] MEDS: NICODERM PATCH TD SCH (08:13)
[2020-01-05] MEDS: LOVENOX SUBQ SCH (08:13)
--- NOTE | 2020-01-05 12:33 | DISCHARGE SUMMARY ---
ADMISSION DATE: 12/31/2019 DISCHARGE DATE: 01/05/2020 DISCHARGE DISPOSITION: Home. DISCHARGE CONDITION: Hemodynamically stable. He is alert oriented x3. He has been able to eat his meals. He is able to walk in the hallway without any difficulty. His mother is at bedside. I counseled him extensively regarding stopping the use of tobacco, alcohol, recreational substances, establishing care with a regular physician, and answered all of his questions. I discussed with him about his entire hospital course and answered all of his questions. DISCHARGE DIAGNOSES: 1. Acute respiratory failure. 2. Active amphetamine and cannabis abuse. 3. Likely seizure on presentation because of substance intoxication. 4. Acute encephalopathy due to suspected seizures and substance intoxication. 5. Active tobacco abuse. 6. Fever, agitation and tachycardia, related to withdrawal from substance use. OTHER DIAGNOSES: 1. Documented history of hypertension. 2. Documented history of chronic obstructive pulmonary disease and he was supposed to be on home oxygen, currently he is breathing well on room air. 3. Active alcohol, tobacco, and cannabis use. VITALS: At the time of discharge temperature 98 degrees, pulse 98, respiratory rate 16, blood pressure 99/76. He is saturating 96-100% on room air. PHYSICAL EXAMINATION: Not in acute distress. Oral cavity is moist. Air entry bilaterally equal. No wheeze and no crackles. S1 normal, no murmur or gallop. Abdomen soft, nontender. No lower extremity edema. He is alert and oriented x3. He has a right arm PICC line which will be removed at the time of discharge. LABORATORY: Labs at the time of admission and discharge: 1. His WBC was 13,000 on presentation which improved to 5,000 at the time of discharge. 2. Hemoglobin 11.99. 3. Platelets 253,000. 4. BUN 9, creatinine 0.6. 5. Blood glucose 141. 6. Magnesium was 1.4 which was replaced. MICROBIOLOGY: Microbiology during hospital admission: 1 of the 2 blood cultures was coagulase- negative Staphylococcus which was likely a contaminant. IMAGING: Significant imaging during hospital admission: 1. Chest x-ray on December 30 did not have any evidence of acute disease. 2. Head and cervical spine CT on admission did not have evidence of acute intracranial or cervical spine disease. He did have degenerative disc disease. 3. Extremity venous studies on December 31 was technically difficult as the patient was not cooperating during this study, but there was no obvious superficial or deep venous thrombosis noted. 4. Chest x-ray on January 03 did not have any acute disease. 5. Electrocardiogram on December 31 had normal sinus rhythm, normal EKG. 6. Echocardiogram on December 31 had ejection fraction of 40% with minimal global hypokinesia, though it was a very difficult study as the patient was on ventilator. 7. Patient also underwent EEG and the final result of which is pending. HOSPITAL COURSE SUMMARY: Mr. Esquivel is 54-year-old, man who initially presented on 12/30/2019 with chief complaints of new onset seizure. Apparently, patient had taken some liquid given to him by 1 of his friends for recreational purposes and after which patient had started becoming profoundly diaphoretic, stuporous and had gone into tonic-clonic type of seizure which lasted for about 30 seconds. The patient was not able to be aroused after that, so EMS was called in who brought the patient to the emergency room. In the emergency room, he had further episodes of posturing and decerebrate type of rigidity, so he was intubated and was started on mechanical ventilation. In the ICU, the patient's course was largely unremarkable except episodes of tachycardia and fever for which blood cultures were obtained, though only 1 of the 2 blood cultures were positive for coagulase-negative Staphylococcus, which was thought to be a contaminant. Briefly he was on intravenous antibiotics which were stopped, and even after stopping antibiotics he did not have fever for more than 48 hours. There was no identifiable source of infection. The patient did have episodes of agitation, thought to be in the setting of substance intoxication and possibly withdrawal. He was actively using tobacco, alcohol, cannabis, and occasionally other recreational substances including amphetamine for which his urine toxicology test was positive for. He required intravenous lorazepam drip for 24 hours and later on he was able to be transitioned to intravenous lorazepam as needed. Later on he became more awake and alert and was transitioned to the floor. On the floor the patient was alert and oriented x3 and was eating his meals without any difficulty and he was monitored for 24 hours and did not have any recurrence of symptoms. It was decided to discharge him. EEG was performed during hospital admission, the read was pending, however, according to nursing report, there was no identifiable seizure. The patient was extensively counseled about stopping use of recreational substances and following up with an outpatient provider. He was also instructed that he did have a slight reduction in ejection fraction of 240% on echocardiogram, though it was a limited study. He was advised to establish care with a primary care doctor and have a discussion with him if he would need future echo. 25 minutes were spent discharging the patient. All of his questions were answered. cc: John Lee MD
--- NOTE | 2020-01-09 12:22 | EEG REPORT ---
DATE: 01/04/2020 EEG #[id number]. COMMENT: This is a digitally recorded EEG done portably at the bedside on a 54-year-old patient with recent encephalopathy, improvement in the last 24 hours, earlier heavy sedation. There was question of seizure just before admission. FINDINGS: During waking, medium amplitude 10-11 hertz posterior rhythm is present symmetrically and reacts at times to eye opening. Background contains polymorphic and rhythmic theta frequencies over the frontal and central regions symmetrically. Beta rhythm is prominent centrally at times at 15-25 hertz. Drowsing occurred briefly. Stage 2 sleep was not recorded. Photic stimulation produced some symmetric entrainment. Hyperventilation was not done. No definite epileptiform discharge was identified. INTERPRETATION: Unremarkable EEG. CORRELATION: The abundant beta rhythm is a typical benzodiazepine effect. There is no other significant finding on this record. The absence of epileptiform discharges on a single EEG does not exclude a clinical diagnosis of seizures, but there is nothing on this record to suggest persistent increased tendency to seizure. cc: Wil Carbajal III, MD MTDD
== END 2020-01-05 11:18 | disposition home or self-care (01) | DRG 208 ==
LOC: EDBD → ED 20:23 → SUATTDRO 12-31 00:52 → ICU 12-31 00:52 → 3N 01-04 10:06
PROVIDERS: ATTEND Internal Medicine